=== PATIENT | male | born 1970 | race Hispanic/Latino ===

== ENCOUNTER 2020-01-23 02:24 | Emergency (ER) | payer SELFPAY ==
--- NOTE | 2020-01-23 07:32 | RAD ---
Exam:3 views right ankle HISTORY: Medial malleolus tenderness COMPARISON: None FINDINGS: No significant soft tissue swelling. No acute fractures. Joint spaces are preserved. IMPRESSION: No radiographic abnormality.
--- NOTE | 2020-01-23 07:34 | ULT ---
PRELIMINARY REPORT/[facility]/EMERGENCY AFTER HOURS PROCEDURE EXAM: US Duplex right Lower Extremity Veins. CLINICAL HISTORY: RLE pain/edema x 4 days TECHNIQUE: Real-time ultrasound scan of the veins of the right lower extremity with color Doppler flow, spectral waveform analysis and compression. COMPARISON: None provided. FINDINGS: DEEP VEINS: The common femoral, femoral, and popliteal veins are echolucent and compressible. These vessels demon strate respiratory variation and augmentation. There is normal color Doppler flow throughout. The visualized calf veins are also patent. SUPERFICIAL VEINS: The visualized greater saphenous vein is patent. SOFT TISSUES: No popliteal fossa cyst or other abnormalities. IMPRESSION: No deep venous thrombosis in the right lower extremity. ELECTRONICALLY SIGNED BY: Dave Villagran MD Jan 23, 2020 3:23:07 AM CDT This report is intended for review by the ordering physician only, in accordance of law. If you recei ve this report in error, please call [facility] at [phone]. FINAL REPORT Exam:Rightlower extremity venous ultrasound with Doppler HISTORY: Rightlower extremity swelling COMPARISON: None TECHNIQUE: Grayscale, color flow, Doppler imaging and spectral wave muscle performed right lower extr emity venous system FINDINGS: There is compressibility, presence of flow and augmentation in the common femoral vein, femoral vein and popliteal vein. There is flow in the posterior tibial vein. There is flow in the greater saphenous vein and profunda femoral vein IMPRESSION: 1. This report is in agreement with initial report by [facility]. 2. No thrombus in the right lower extremity deep venous system. Transcribed Date/Time: 01/23/2020 7:38 AM
== END 2020-01-23 04:03 | disposition home or self-care (01) ==
LOC: ERS 02:24
DX: L03.115 Cellulitis of right lower limb (principal)
CPT/HCPCS: 36415; 85379

== ENCOUNTER 2020-04-11 14:59 | Emergency (ER) | payer SELFPAY | END 2020-04-11 16:34 | disposition home or self-care (01) | LOC: ERS 14:59 | DX: M54.16 Radiculopathy, lumbar region (principal) | CPT/HCPCS: 99283 ==